=== PATIENT | male | born 1970 | race Asian ===

== ENCOUNTER 2024-11-11 20:11 | Emergency (ER) | payer MEDICAID ==
[~2024-11-11] VITALS: Ht 167.6 cm; Wt 79.5 kg
[2024-11-11 20:22] VITALS: TEMP 97.9
[2024-11-11 23:54] VITALS: BP 123/85; PULSE 91; RESP 16; O2SAT 98
[2024-11-12] MEDS: ACETAMINOPHEN 500 MG TABLET PO ONE (00:03)
[2024-11-12] MEDS: IBUPROFEN 400 MG TABLET PO ONE (00:04)
[2024-11-12] MEDS ORDERED: ACET-3385 PO (00:23)
[2024-11-12] MEDS ORDERED: IBUP-1506 PO (00:23)
== END 2024-11-12 00:45 | disposition home or self-care (01) ==
LOC: EMS 20:11
DX: M79.89 Other specified soft tissue disorders (principal)
CPT/HCPCS: 99283